=== PATIENT | female | born 1950 | race Caucasian/White ===

== ENCOUNTER → 2017-07-19 | Day surgery (SDC) | payer OTHER ==
[~2017-07-19] MED LIST: ACETAMINOPHEN PO; ADVAIR 250-501 EAC1 INH; ADVAIR 500-501 EACH IH; ALBUTEROL MININEB NEB; ALBUTEROL17 G1 IH; ALBUTEROL17 GM INH; ALTACE5 M1 PO; CELEXA20 MG PO; IBUPROFEN100 MG PO; LORTAB 5/500 TA1 TA1 PO; MOBIC15 MG PO; NAPROXEN500 M1 PO; OXYGEN; PHENERGAN25 MG PO; PRILOSEC PO; PROMETHAZINE D118 ML PO; SINGULAIR PO; SPIRIVA18 MCG INH; TYLENOL80 MG/0.2 PO; VIBRAMYCIN100 M1 PO; VOLTAREN75 MG PO; ZITHROMAX PO
--- NOTE | ~2017-07-19 | OR ---
Unit #: [id number] #: [id number] Patient: RADHA HARRIS [id number] [address] [place], [place] [address] [id number] O MR#: [id number] NAME: RADHA HARRIS. ROOM: Date of Procedure: 07/19/2017 Admission Date: 07/19/2017 Surgeon: Owen Griffith M.D. : 1950 Attending Physician: Owen Griffith M.D. Primary Care Physician: Nithin Jimenez M.D. OPERATIVE REPORT JOB NOTE: CC: [facility]. PREOPERATIVE DIAGNOSES Back pain, radiculopathy, degenerative lumbar disk disease with myelopathy. POSTOPERATIVE DIAGNOSES Back pain, radiculopathy, degenerative lumbar disk disease with myelopathy. PROCEDURE PERFORMED Lumbar epidural steroid injection with intravenous sedation and fluoroscopic guidance for needle localization. INDICATIONS FOR PROCEDURE The patient is a 67-year-old female with back and significant right lower extremity radicular pain. This has been flared up over the last 10 to 11 months and not settled with conservative measures. Several years ago, some of the symptoms settled well with epidural steroids. Workup demonstrated L4-L5 greater than L3-L4 right-sided disk osteophyte complex with the right-sided bulge and annular tear. Symptom complex is consistent with radiculitis, therefore the plan based on her pathology, and symptomatology, is for trial of epidural steroids. Risks and benefits of all which have been reviewed. DESCRIPTION OF PROCEDURE The patient was placed in a seated position. Standard monitors were applied. Sterile prep and drape then of the lumbar area was performed. The skin then at the L5-S1 level was localized with 1% lidocaine. An 18-gauge HeartFlowtead needle was then advanced via loss of resistance technique and fluoroscopic guidance in toward the epidural space. After confirming proper positioning with fluoroscopy and radiographic contrast, 80 mg of Depo-Medrol and 4 mL of 0.125% bupivacaine were deposited. The patient tolerated the procedure otherwise well and was discharged to the recovery room in stable condition. Dictated by... Cesia MejiaP/vicl TD: 07/19/2017 13:56 JOB #: [id number] Unit #: [id number] #: [id number] Patient: RADHA HARRIS OPERATIVE REPORT Page 1 of 1 X Owen Griffith MD X PROCEDURE OPERATIVE NOTE
== END | disposition home or self-care (01) ==
LOC: CCSC 08:33
DX: M51.06 Intervertebral disc disorders with myelopathy, lumbar region (principal); M51.16 Intervertebral disc disorders with radiculopathy, lumbar region; J44.9 Chronic obstructive pulmonary disease, unspecified; Z85.118 Personal history of other malignant neoplasm of bronchus and lung; Z79.51 Long term (current) use of inhaled steroids; Z79.899 Other long term (current) drug therapy
CPT/HCPCS: J1040; J2250